=== PATIENT | female | born 1990 | race Caucasian/White ===

== ENCOUNTER 2020-04-12 12:41 | Emergency (ER) | payer OTHER, SELFPAY ==
[2020-04-12 12:50] VITALS: BP 130/62; PULSE 89; RESP 16; TEMP 36.8; O2SAT 100; BMI 26.4
--- NOTE | 2020-04-12 13:19 | ED.PREGNANCY ---
HPI - <ASAF Valadez - Last Filed: 04/12/20 14:51> General Chief complaint: OB/Uterine Contractions Stated complaint: 17wks preg, fall on to upper stomach area Time Seen by Provider: 04/12/20 13:10 Source: patient Mode of arrival: Ambulatory Limitations: no limitations History of Present Illness HPI Narrative: This is a 29-year-old female, nonsmoker, with LMP 12/10/19, 17 weeks + 5 days, presents to ED with chief complain of fell over a metal bar and hit upper abdomen/chest around the bra line at work today. Patient reports she was caring of push bar ladder and she put too much pressure and the ladder stopped and she fell forward. She denies chest pain, breathing difficulty, dizziness prior the incident or currently. She denies abdominal pain, vaginal bleeding. She has not felt movements since the . Patient's next appointment or 20 week ultrasound is scheduled on 04/30/20. She is here to check things out. Date of Last Menstrual Period: 12/10/19 Patient : Yes Expected Date of Delivery: 09/15/20 Review of Systems <ASAF Valadez - Last Filed: 04/12/20 14:51> Review of Systems Narrative: General: Denies fever, chills, fatigue, malaise, sweats. Respiratory: Denies dyspnea, cough, wheezing, hemoptysis, sputum. Cardiovascular: Denies chest pain, palpitations, orthopnea, edema. Gastrointestinal: Denies nausea, vomiting, abdominal pain, diarrhea, constipation, melena. : Denies dysuria, frequency, incontinence, hematuria, urinary retention. Musculoskeletal: Denies weakness, joint pain or bony pain. Skin: Denies rash, skin lesions, or other. Neurologic: Denies weakness, headache, numbness, change in speech, confusion, seizures, incoordination. PMFSH - <ASAF Valadez - Last Filed: 04/12/20 14:51> Past Medical History Medical history: Reports non-contributory Date of Last Menstrual Period: 12/10/19 Patient : Yes Expected Date of Delivery: 09/15/20 Exam <ASAF Valadez - Last Filed: 04/12/20 14:51> Narrative Exam Narrative: General appearance: well developed, well nourished, in no acute distress. Head: normocephalic, atraumatic, no scalp lesions, non-tender. ENT: Hearing grossly intact. Airway patent. Neck/Thyroid: neck supple, full range of motion, no visible masses or meningeal signs. No JVD, non-tender without lymphadenopathy. Skin: no suspicious rashes, lesions, ecchymosis, mass over abdomen. Warm and dry and appropriate color for ethnicity. Heart: no clubbing, no cyanosis, no edema. S1 and S2 normal. RRR w/o murmurs, clicks, or bruits. Lungs: Breathing even and unlabored. No stridor. No accessory muscles used. Able to speak in full sentences. Chest: normal shape and expansion. Abdomen: non-obese, non-distended, soft, nontender to palpate. Active bowel sounds in all quadrants. Neurologic: alert and oriented. 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 Psych: good eye contact, normal affect. Initial Vital Signs Initial Vital Signs: Vital Signs Temperature 98.3 F 04/12/20 12:50 Pulse Rate 89 04/12/20 12:50 Respiratory Rate 16 04/12/20 12:50 Blood Pressure 130/62 04/12/20 12:50 Pulse Oximetry 100 04/12/20 12:50 <Liyah Cunningham DO - Last Filed: 04/12/20 17:44> Initial Vital Signs Initial Vital Signs: Vital Signs Temperature 98.3 F 04/12/20 12:50 Pulse Rate 89 04/12/20 12:50 Respiratory Rate 16 04/12/20 12:50 Blood Pressure 130/62 04/12/20 12:50 Pulse Oximetry 100 04/12/20 12:50 Scores <ASAF Valadez - Last Filed: 04/12/20 14:51> GCS [place] coma scale eye opening: Spontaneous [place] coma scale verbal response: Orientated [place] coma scale motor response: Obey commands Alice coma scale total score: 15 Citation: [facility] 147 bmp Course <ASAF Valadez - Last Filed: 04/12/20 14:51> Vital Signs Vital signs: Vital Signs - 8 hr 04/12/20 12:50 Temperature 98.3 F Pulse Rate 89 Respiratory Rate 16 Blood Pressure 130/62 Pulse Oximetry 100 <Liyah C DO Marisa - Last Filed: 04/12/20 17:44> Vital Signs Vital signs: Vital Signs - 8 hr 04/12/20 12:50 Temperature 98.3 F Pulse Rate 89 Respiratory Rate 16 Blood Pressure 130/62 Pulse Oximetry 100 MDM - OB/Uterine Contractions <ASAF Valadez - Last Filed: 04/12/20 14:51> Differential Diagnosis Differential diagnosis: Likely other (normal exam) Medical Records Attestation: I reviewed the patient's medical records. Lab Data Attestation: I reviewed the patient's lab results. Labs: Urine Dip Bedside Urine Glucose Negative Bedside Urine Bilirubin - Negative Bedside Urine Ketone +++ 80 Urine Specific [place] 1.015 Bedside Urine Occult Blood - Negative Bedside Urine pH 6.5 Bedside Urine Protein - Negative Bedside Urine Urobilinogen - Negative Bedside Urine Nitrite - Negative Bedside Urine Leukocytes - Negative Esterase MDM Narrative Medical decision making narrative: This is a 29 year female currently 17 weeks +5 EGA presents to ED after she fell over a metal bar while carrying a push ladder accidentally. Patient denies abdominal pain, vaginal bleeding, chest pain, dyspnea. Abdomen exam was unremarkable. heart tone 147 bpm. Patient has within normal limits of vital signs. Patient has next appointment on 04/30/2020 for 20 week US at the [facility]. Since the EGA is around 17 week, it is not likely she had directly injury to uterus. We discussed strict return precautions and she verbalized understanding and in agreement with the treatment plan. Patient advised to use Tylenol as needed if pain occurs. <Liyah Cunningham DO - Last Filed: 04/12/20 17:44> Lab Data Labs: Urine Dip Bedside Urine Glucose Negative Bedside Urine Bilirubin - Negative Bedside Urine Ketone +++ 80 Urine Specific [place] 1.015 Bedside Urine Occult Blood - Negative Bedside Urine pH 6.5 Bedside Urine Protein - Negative Bedside Urine Urobilinogen - Negative Bedside Urine Nitrite - Negative Bedside Urine Leukocytes - Negative Esterase Discharge Plan Departure Patient Disposition: Home Clinical Impression: Normal baseline heart rate during in second trimester Discharge Date/Time: 04/12/20 13:47 Activity Restrictions/Additional Instructions: You have been diagnosed with [physical exam and normal heart tone during 2nd trimester.]. What to do: *Take your medications as directed. You can use [id number] Tylenol as needed for discomfort. *Follow up with your primary care provider in 2-3 days, call for an appointment. Let them know you were seen in the ED and that we asked you to be seen in follow up. *Return to ED if you have any new, worsening, or concerning symptoms, such as [abdominal pain/cramping, vaginal bleeding, chest pain, breathing difficulty, unable to tolerate fluids, fever or any acute concerns]. Referrals: [facility] [Outside] <Liyah Cunningham DO - Last Filed: 04/12/20 17:44> Cosign ED Attending Coskimmieature Attestation: I was immediately available in the department for consultation. This documentation has been reviewed and I agree with assessment and plan, case discussed with myself. Supervised by Liyah Cunningham DO
== END 2020-04-12 13:47 | disposition home or self-care (01) ==
PROVIDERS: Emergency Provider Nurse Practitioner Family
DX: O26.892 Other specified pregnancy related conditions, second trimester (principal); R10.9 Unspecified abdominal pain; Z3A.17 17 weeks gestation of pregnancy
CPT/HCPCS: 81003; 99282; 99283